=== PATIENT | female | born 1960 | race Caucasian/White ===

== ENCOUNTER 2016-09-25 12:23 | Observation (INO) | payer OTHER ==
[~2016-09-25] VITALS: Ht 160 cm; Wt 81.0 kg
[~2016-09-25 12:23] MED LIST: LIDO5DIS35 TOPICAL
[2016-09-25 12:30] VITALS: BP 112/52; PULSE 60; RESP 16; TEMP 98.8; O2SAT 96
[2016-09-25] MEDS ORDERED: SODIUM CHLORIDE 0.9% FLUSH 5 ML FLUSH IVF PRN ×2 (12:45→15:15)
[2016-09-25] MEDS ORDERED: ASPIRIN 81 MG CHEW TAB PO ONE (12:45)
[2016-09-25] MEDS ORDERED: NITROGLYCERIN 2% OINT 1 GM PACKET TOP ONE (12:45)
--- NOTE | 2016-09-25 12:45 | PD ---
HPI Chief Complaint: Cardiac Complaint Time Seen by Provider: 12:39 Travel History International Travel<30 days: No Contact w/Intl Traveler<30days: No Traveled to known affect area: No History of Present Illness HPI 56-year-old female brought in by ambulance with history of sudden onset central chest pain while exercising at the local gym on a step climber. Patient states it came on suddenly, it has improved somewhat with rest, and 162 mg of aspirin by mouth. Patient states at worst it was an 8/10, and worse with deep breath. Currently her pain is 2/10 at rest, and is in the mid central chest radiating through to the back. Patient states she did have some left arm discomfort when it first started. She states that is gone now. She has no previous history of cardiac disease, but has had an episode of syncope in the past with stress test performed several years ago. Patient has no known history of hypercholesterolemia. Patient is a nonsmoker. Patient is disabled from her back, but is active. Patient was seen originally at [facility], and sent here for further evaluation and workup. She states she is allergic to Cleocin and iodine. [facility] Past Medical History Diminished Hearing: No Kidney Stones: Yes Musculoskeletal: Yes (back pain) ?: Not Menopausal: Yes Social History Alcohol Use: Yes (ocassional) Tobacco Use: No Substance Use: No Allergies-Medications (Allergen,Severity, Reaction): Coded Allergies: Cleocin (Verified Adverse Reaction, Intermediate, Rash, 07/27/16) RASH Iodine (Verified Adverse Reaction, Intermediate, Rash, 07/27/16) HIVES Reported Meds & Prescriptions Reported Meds & Active Scripts Active No Active Prescriptions or Reported Medications Review of Systems Except as stated in HPI: all other systems reviewed are Neg General / Constitutional: No: Fever Eyes: No: Visual changes HENT: No: Headaches Cardiovascular: Positive: Chest Pain or Discomfort (see history of present illness.), No: Diaphoresis, Syncope, Dyspnea on exertion, Varicosities, Edema Respiratory: No: Shortness of Breath Gastrointestinal: No: Nausea, Vomiting, Diarrhea, Abdominal Pain Genitourinary: No: Dysuria Musculoskeletal: No: Pain Skin: No Rash Neurologic: No: Weakness Psychiatric: No: Depression Endocrine: No: Polydipsia Hematologic/Lymphatic: No: Easy Bruising Physical Exam Narrative GENERAL: Patient appears in no acute distress. SKIN: Warm and dry. Normal color. Normal turgor. No diaphoresis. HEAD: Atraumatic. Normocephalic. EYES: Pupils equal and round. No scleral icterus. No injection or drainage. ENT: No nasal bleeding or discharge. Mucous membranes pink and moist. Pharynx is normal. NECK: Trachea midline. No JVD. Neck is supple nontender. CARDIOVASCULAR: Regular rate and rhythm. No murmurs gallops or rubs appreciated. RESPIRATORY: No accessory muscle use. Clear to auscultation. Breath sounds equal bilaterally. GASTROINTESTINAL: Abdomen soft, non-tender, nondistended. Hepatic and splenic margins not palpable. MUSCULOSKELETAL: Extremities without clubbing, cyanosis, or edema. No obvious deformities. NEUROLOGICAL: Awake and alert. No obvious cranial nerve deficits. Motor grossly within normal limits. Five out of 5 muscle strength in the arms and legs. Normal speech. PSYCHIATRIC: Appropriate mood and affect; insight and judgment normal. Data Data Last Documented VS Vital Signs Date Time Temp Pulse Resp B/P Pulse Ox O2 Delivery O2 Flow Rate FiO2 09/25/16 14:00 67 14 116/53 99 Room Air 09/25/16 12:51 2 09/25/16 12:30 98.8 Orders Ckmb (Isoenzyme) Profile (09/25/16 12:36) Complete Blood Count With Diff (09/25/16 12:36) Comprehensive Metabolic Panel (09/25/16 12:36) D-Dimer (09/25/16 12:36) Magnesium (Mg) (09/25/16 12:36) Prothrombin Time / Inr (Pt) (09/25/16 12:36) Act Partial Throm Time (Ptt) (09/25/16 12:36) Troponin I (09/25/16 12:36) Chest, Single Ap (09/25/16 12:36) Ecg Monitoring (09/25/16 12:36) Bilateral Bp Monitoring (09/25/16 12:36) Iv Access Insert/Monitor (09/25/16 12:36) Oximetry (09/25/16 12:36) Oxygen Administration (09/25/16 12:36) Aspirin Chew (Aspirin Chew) (09/25/16 12:45) Nitroglycerin 2% Oint (Nitroglycerin 2% (09/25/16 12:45) Sodium Chloride 0.9% Flush (Ns Flush) (09/25/16 12:45) Labs Laboratory Tests Test 09/25/16 12:47 White Blood Count 7.0 TH/MM3 Red Blood Count 3.85 MIL/MM3 Hemoglobin 12.2 GM/DL Hematocrit 34.4 % Mean Corpuscular Volume 89.3 FL Mean Corpuscular Hemoglobin 31.6 PG Mean Corpuscular Hemoglobin 35.4 % Concent Red Cell Distribution Width 13.1 % Platelet Count 226 TH/MM3 Mean Platelet Volume 8.3 FL Neutrophils (%) (Auto) 58.9 % Lymphocytes (%) (Auto) 31.2 % Monocytes (%) (Auto) 6.9 % Eosinophils (%) (Auto) 2.4 % Basophils (%) (Auto) 0.6 % Neutrophils # (Auto) 4.1 TH/MM3 Lymphocytes # (Auto) 2.2 TH/MM3 Monocytes # (Auto) 0.5 TH/MM3 Eosinophils # (Auto) 0.2 TH/MM3 Basophils # (Auto) 0.0 TH/MM3 CBC Comment DIFF FINAL Differential Comment Prothrombin Time 10.8 SEC Prothromb Time International 1.0 RATIO Ratio Activated Partial 26.0 SEC Thromboplast Time D-Dimer Quantitative (PE/DVT) 0.38 MG/L FEU Sodium Level 140 MEQ/L Potassium Level 3.9 MEQ/L Chloride Level 106 MEQ/L Carbon Dioxide Level 29.7 MEQ/L Anion Gap 4 MEQ/L Blood Urea Nitrogen 10 MG/DL Creatinine 0.82 MG/DL Estimat Glomerular Filtration 73 ML/MIN Rate Random Glucose 87 MG/DL Calcium Level 8.7 MG/DL Magnesium Level 1.9 MG/DL Total Bilirubin 0.4 MG/DL Aspartate Amino Transf 27 U/L (AST/SGOT) Alanine Aminotransferase 69 U/L (ALT/SGPT) Alkaline Phosphatase 64 U/L Total Creatine Kinase 78 U/L Troponin I LESS THAN 0.02 NG/ML Total Protein 7.2 GM/DL Albumin 3.8 GM/DL [facility] Medical Decision Making Medical Screen Exam Complete: Yes Emergency Medical Condition: Yes Differential Diagnosis Coronary syndrome. Coronary ischemia. Angina. OH. Narrative Course Patient appears medically stable at time of exam. EKG shows nonspecific ST changes with question of ST depression in the ventral leads. This is reviewed with Dr. Mandel. Cardiac labs are ordered per protocol including a d-dimer. Patient is given a second dose of aspirin 162 mg by mouth. 1 inch of nitroglycerin paste is placed. Chest x-ray is ordered. Chest x-ray is unremarkable per radiologist. Labs show negative troponin. No other acute findings. Patient discussed and seen with Dr. Mandel. He feels the patient should remain for chest pain center admission and rule out. Diagnosis Primary Impression: Chest pain in adult Admitting Information Admitting Physician Requests: Observation Scripts No Active Prescriptions or Reported Meds Condition: Stable Yaw Guzman Sep 25, 2016 12:45
[2016-09-25 13:01] LABS: AUTOMATED NEUTROPHIL # 4.1 TH/MM3 (1.8-7.7); BASOPHIL % 0.6 % (0.0-2.0); EOSINOPHIL # 0.2 TH/MM3 (0-0.4); EOSINOPHIL % 2.4 % (0.0-4.0); HEMATOCRIT 34.4 % (35.0-46.0); HEMO FLAGS DIFF FINAL; LYMPH % 31.2 % (9.0-44.0); LYMPHOCYTE # 2.2 TH/MM3 (1.0-4.8); MEAN CELL VOLUME 89.3 FL (80.0-100.0); MEAN CORPUSCULAR HEMOGLOBIN 31.6 PG (27.0-34.0); MEAN CORPUSCULAR HGB CONC 35.4 % (32.0-36.0); MONO % 6.9 % (0.0-8.0); NEUT % 58.9 % (16.0-70.0); PLATELET COUNT 226 TH/MM3 (150-450); RED BLOOD COUNT 3.85 MIL/MM3 (4.00-5.30); RED CELL DISTRIBUTION WIDTH 13.1 % (11.6-17.2)
[2016-09-25 13:12] LABS: PROTHROMBIN TIME - PATIENT 10.8 SEC (9.8-11.6)
[2016-09-25 13:24] LABS: ALT (GPT) 69 U/L (10-53); ANION GAP 4 MEQ/L (5-15); AST (GOT) 27 U/L (15-37); BICARBONATE 29.7 MEQ/L (21.0-32.0); BLOOD UREA NITROGEN 10 MG/DL (7-18); CHLORIDE 106 MEQ/L (98-107); GLOMERULAR FILTRATION RATE 73 ML/MIN (>89); MAGNESIUM 1.9 MG/DL (1.5-2.5); POTASSIUM 3.9 MEQ/L (3.5-5.1); SODIUM (NA) 140 MEQ/L (136-145)
--- NOTE | 2016-09-25 13:26 | RADRPT ---
EXAM DATE/TIME: 09/25/2016 12:49 [facility] COMPARISON: No previous studies available for comparison. INDICATIONS : Chest Pain. MEDICAL HISTORY : Renal calculi. SURGICAL HISTORY : Orthopedic. ENCOUNTER: Initial ACUITY: 1 day PAIN SCORE: 6/10 LOCATION: Bilateral chest FINDINGS: A single view of the chest demonstrates the lungs to be symmetrically aerated without evidence of mas s, infiltrate or effusion. The cardiomediastinal contours are unremarkable. Osseous structures are intact. CONCLUSION: No acute disease. Nathan Ponce MD FACR on September 25, 2016 at 13:24 Board Certified Radiologist. This report was verified electronically.
--- NOTE | 2016-09-25 13:29 | PD ---
Data Data Last Documented VS Vital Signs Date Time Temp Pulse Resp B/P Pulse Ox O2 Delivery O2 Flow Rate FiO2 09/25/16 12:51 97 2 09/25/16 12:30 98.8 60 16 Orders Ckmb (Isoenzyme) Profile (09/25/16 12:36) Complete Blood Count With Diff (09/25/16 12:36) Comprehensive Metabolic Panel (09/25/16 12:36) D-Dimer (09/25/16 12:36) Magnesium (Mg) (09/25/16 12:36) Prothrombin Time / Inr (Pt) (09/25/16 12:36) Act Partial Throm Time (Ptt) (09/25/16 12:36) Troponin I (09/25/16 12:36) Chest, Single Ap (09/25/16 12:36) Ecg Monitoring (09/25/16 12:36) Bilateral Bp Monitoring (09/25/16 12:36) Iv Access Insert/Monitor (09/25/16 12:36) Oximetry (09/25/16 12:36) Oxygen Administration (09/25/16 12:36) Aspirin Chew (Aspirin Chew) (09/25/16 12:45) Nitroglycerin 2% Oint (Nitroglycerin 2% (09/25/16 12:45) Sodium Chloride 0.9% Flush (Ns Flush) (09/25/16 12:45) Labs Laboratory Tests Test 09/25/16 12:47 White Blood Count 7.0 TH/MM3 Red Blood Count 3.85 MIL/MM3 Hemoglobin 12.2 GM/DL Hematocrit 34.4 % Mean Corpuscular Volume 89.3 FL Mean Corpuscular Hemoglobin 31.6 PG Mean Corpuscular Hemoglobin 35.4 % Concent Red Cell Distribution Width 13.1 % Platelet Count 226 TH/MM3 Mean Platelet Volume 8.3 FL Neutrophils (%) (Auto) 58.9 % Lymphocytes (%) (Auto) 31.2 % Monocytes (%) (Auto) 6.9 % Eosinophils (%) (Auto) 2.4 % Basophils (%) (Auto) 0.6 % Neutrophils # (Auto) 4.1 TH/MM3 Lymphocytes # (Auto) 2.2 TH/MM3 Monocytes # (Auto) 0.5 TH/MM3 Eosinophils # (Auto) 0.2 TH/MM3 Basophils # (Auto) 0.0 TH/MM3 CBC Comment DIFF FINAL Differential Comment Prothrombin Time 10.8 SEC Prothromb Time International 1.0 RATIO Ratio Activated Partial 26.0 SEC Thromboplast Time D-Dimer Quantitative (PE/DVT) 0.38 MG/L FEU Sodium Level 140 MEQ/L Potassium Level 3.9 MEQ/L Chloride Level 106 MEQ/L Carbon Dioxide Level 29.7 MEQ/L Anion Gap 4 MEQ/L Blood Urea Nitrogen 10 MG/DL Creatinine 0.82 MG/DL Estimat Glomerular Filtration 73 ML/MIN Rate Random Glucose 87 MG/DL Calcium Level 8.7 MG/DL Magnesium Level 1.9 MG/DL Aspartate Amino Transf 27 U/L (AST/SGOT) Alanine Aminotransferase 69 U/L (ALT/SGPT) Albumin 3.8 GM/DL MDM Supervised Visit with ELPIDIO: Yes Narrative Course The history, exam, and medical decision-making in the associated mid-level provider note were completed with my assistance. I reviewed and agree with the findings presented. I attest that I had a [id number] encounter with the patient on the same day, and personally performed and documented my assessment and findings in the medical record. *My assessment and Findings: 56 year-old woman, pressure-like chest discomfort while using a sterile climber. No prodromal symptoms leading up to this. She's been sick for the past several days and was just really getting back up to speed but no dyspnea on exertion or chest pain prior to today. Symptoms have almost completely resolved now. This happened at about 11 AM. Patient has a moderate risk heart score, 4 points, one for moderately suspicious history, abnormal EKG, age, and positive family history. Given this, we will recommend observation in the chest pain Center. Scripts No Active Prescriptions or Reported Meds Frank Mandel MD Sep 25, 2016 13:29
[2016-09-25 13:30] LABS: ALKALINE PHOSPHATASE 64 U/L (45-117); TOTAL BILIRUBIN ADULT 0.4 MG/DL (0.2-1.0)
[2016-09-25 13:42] LABS: CREATINE KINASE 78 U/L (26-192)
[2016-09-25 14:00] VITALS: BP 116/53; PULSE 67; PULSE 70; RESP 14; O2SAT 99
[2016-09-25] MEDS ORDERED: ACETAMINOPHEN/HYDROcodone 325 MG/7.5 MG TAB PO PRN (15:15)
[2016-09-25] MEDS ORDERED: ALPRAZolam 0.25 MG TAB PO PRN (15:15)
[2016-09-25] MEDS: PANTOPRAZOLE SOD 40 MG DELAYED RELEASE TAB PO SCH (15:15)
[2016-09-25] MEDS ORDERED: ACETAMINOPHEN 500 MG CPLT PO PRN (15:15)
[2016-09-25] MEDS ORDERED: ONDANSETRON HCL 4 MG/2 ML VIAL IV PRN (15:15)
[2016-09-25] MEDS ORDERED: MORPHINE SULFATE 4 MG/ML INJ IV PUSH PRN (15:15)
[2016-09-25 16:39] LABS: CREATINE KINASE 73 U/L (26-192)
[2016-09-25 17:15] VITALS: BP 110/60; PULSE 75; RESP 18; TEMP 98; O2SAT 95
[2016-09-25 19:58] LABS: CREATINE KINASE 72 U/L (26-192)
[2016-09-25 20:00] VITALS: O2SAT 97
[2016-09-25 20:29] VITALS: BP 112/64; PULSE 84; RESP 21; TEMP 98.9; O2SAT 99
--- NOTE | 2016-09-25 21:32 | EKG ---
Date Performed: 09/25/2016 Time Performed: 12:31:59 PTAGE: 56 years EKG: Sinus rhythm NONSPECIFIC T-WAVE ABNORMALITY BORDERLINE ECG NO PREVIOUS TRACING DOCTOR: Bipin Quiñonez Interpretating Date/Time 09/25/2016 21:31:38
--- NOTE | 2016-09-25 21:34 | EKG ---
Date Performed: 09/25/2016 Time Performed: 15:33:45 PTAGE: 56 years EKG: Sinus rhythm WITH SINUS ARRHYTHMIA WITH FIRST DEGREE AV BLOCK NONSPECIFIC T-WAVE ABNORMALITY ABNORMAL ECG PREVIOUS TRACING : 09/25/2016 12.31 DOCTOR: Bipin Quiñonez Interpretating Date/Time 09/25/2016 21:33:03
--- NOTE | 2016-09-25 21:46 | EKG ---
Date Performed: 09/25/2016 Time Performed: 18:24:41 PTAGE: 56 years EKG: Sinus rhythm WITH FIRST DEGREE AV BLOCK NONSPECIFIC ST & T-WAVE ABNORMALITY ABNORMAL ECG PREVIOUS TRACING : 09/25/2016 15.33 DOCTOR: Bipin Quiñonez Interpretating Date/Time 09/25/2016 21:45:11
[2016-09-25] MEDS: SODIUM CHLORIDE 0.9% FLUSH 5 ML FLUSH IVF SCH (22:52)
[2016-09-25 23:07] VITALS: PULSE 76
[2016-09-26 00:23] VITALS: BP 121/66; PULSE 67; RESP 17; TEMP 98; O2SAT 97
[2016-09-26 04:44] VITALS: BP 121/68; PULSE 88; RESP 18; TEMP 98.4; O2SAT 99
[2016-09-26 07:57] VITALS: BP 103/69; PULSE 76; RESP 18; TEMP 98.1; O2SAT 96
[2016-09-26] MEDS: SODIUM CHLORIDE 0.9% FLUSH 5 ML FLUSH IVF SCH (08:00)
[2016-09-26] MEDS: PANTOPRAZOLE SOD 40 MG DELAYED RELEASE TAB PO SCH (08:15)
[2016-09-26 08:36] VITALS: O2SAT 96
[2016-09-26] MEDS ORDERED: ASPIRIN 325 MG TAB PO SCH (09:00)
--- NOTE | 2016-09-26 10:56 | RADRPT ---
EXAM DATE/TIME: 09/26/2016 09:04 [facility] COMPARISON: No previous studies available for comparison. INDICATIONS : Substernal chest pain radiating to left arm and back while exercising. Angina DOSE: 25.4 mCi Tc99m Myoview at stress 8.5 mCi Tc99m Myoview at rest REST HEART RATE: 73 BPM TARGET HEART RATE: 141 BPM MAX HEART RATE: 152 BPM REST BLOOD PRESSURE: 118/80 mmHg MAX BLOOD PRESSURE: 182/80 mmHg EJECTION FRACTION: 59% MEDICAL HISTORY : None SURGICAL HISTORY : None. ENCOUNTER: Initial ACUITY: 1 day PAIN SCALE: 8/10 LOCATION: Substernal chest TECHNIQUE: The patient underwent upright treadmill exercise in the chest pain center. Continuous ECG tracing wa s monitored during stress. Gated SPECT imaging was performed after stress, and conventional SPECT im aging was performed at rest. The examination was performed on a SPECT/CT scanner, both attenuation-c orrected and non-corrected datasets were reviewed. FINDINGS: The best perfused myocardium in the anterior wall followed by the septum and inferior wall. There a re no fixed defects to suggest infarction. There is no redistribution to suggest stress-induced isch emia. Ejection fraction is 59%. CONCLUSION: Negative for stress-induced ischemia. RISK CATEGORY: Low (<1% Annual Mortality Rate) Nathan Ponce MD FACR on September 26, 2016 at 10:53 Board Certified Radiologist. This report was verified electronically.
--- NOTE | 2016-09-26 11:21 | HHI.DCPOC ---
Discharge Care Plan Diagnosis: (1) Chest pain, atypical Goals to Promote Your Health * To prevent worsening of your condition and complications * To maintain your health at the optimal level Directions to Meet Your Goals Take your medications as prescribed Follow your dietary instruction Follow activity as directed Keep your appointments as scheduled Take your immunizations and boosters as scheduled If your symptoms worsen call your PCP, if no PCP go to Urgent Care Center or Emergency Room Smoking is Dangerous to Your Health. Avoid second hand smoke Call the 24-hour hour crisis hotline for domestic abuse at Thom Soto Sep 26, 2016 11:21
--- NOTE | 2016-09-26 12:50 | TR ---
Date Performed: 09/26/2016 Time Performed: 09:48:36 DOCTOR: Bipin Quiñonez DRUG LIST: CLINICAL HISTORY: REASON FOR TEST: REASON FOR ENDING: OBSERVATION: CONCLUSION: NUC ETT. JODIE PROTOCOL. NO CP. MILD SOB. SYSTOLIC HYPERTENSIVE RESPONSE TO EXERCIS E. FAIR EXERCISE TOLERANCE. ECG TRACINGS AT PEAK EXERCISE ARE NEGATIVE FOR ISCHEMIC CHANGES. RECOVER Y WAS QUICK AND UNEVENTFUL WITH RESOLUTION OF SHORTNESS OF BREATH, SYSTOLIC BLOOD PRESSURE RETURNED T O NORMAL.Maximum FR=140 % Max HR Achieved=92.0% Maximum CE=441/80 Total Exercise Time=7:39 COMMENTS: CONCLUSION: ECG portion of nuclear exercise stress test was negative for ischemia. Nuc lear imaging and interpretation are pending.
--- NOTE | 2016-09-27 08:39 | MH ---
cc: BIPIN PEÑA DATE OF ADMISSION: 09/25/2016 CHIEF COMPLAINT: Chest pain. HISTORY OF PRESENT ILLNESS: This is a 56-year-old female who presented to the emergency department via [facility] from care with a complaint of chest discomfort. The patient states that she goes on a stair climber five times a week and has been doing so for a couple of months usually has no issues. This morning around eleven o'clock, almost immediately after getting on the stair stepper, she developed a squeezing across her chest. She continued to walk for about six minutes and it just continued to worsen. It got to about a 7/10 and is still there as a 7/10. She states that is it worsened with a sharp discomfort when she takes in a deep breath. She is mildly short of breath. No nausea or diaphoresis. She has never had anything like this before. She states she has had a stress test a couple of years ago. She believes it was after a syncopal episode and that it was okay. She is now followed by a hotel registration clerk at this time. She denies any recent illnesses. She has not been coughing. No fevers or chills. She does state she recently flew back from [place] September 15. She denies calf pain or swelling. She denies history of DVT or PE. PAST MEDICAL HISTORY: 1. She is disabled secondary to chronic back pain. 2. Bipolar disorder. 3. Denies hypertension, hyperlipidemia, diabetes and CAD. FAMILY HISTORY: She just recently found that she has a half-sister and her half-sister has stents. SOCIAL HISTORY: The patient was smoking 12 years ago and prior to that, she smoked about a quarter pack a day for thirty years. She has an occasional beer. She smokes marijuana daily. PAST SURGICAL HISTORY: Noncontributory. ALLERGIES: 1. CLEOCIN. 2. IODINE. MEDICATIONS: She occasionally will take a soma or a Dilaudid tablet for back issues but this is not regular. REVIEW OF SYSTEMS: GENERAL: Denies fevers or chills. Denies recent illnesses. HEAD, EYES, EARS, NOSE, THROAT: Denies headache, earache, sore throat, difficulty swallowing. CARDIOVASCULAR: Describes the discomfort as mentioned above. Denies diaphoresis. Denies sensation of heart beating rapidly or irregularly. No syncope. RESPIRATORY: She was a little short of breath. She had inspirational chest discomfort that worsened the symptoms she had been having. Denies coughing, wheezing or hemoptysis. GI: Denies nausea, vomiting, diarrhea, abdominal pain or blood in the stool. MUSCULOSKELETAL: She complains of chronic back pain. She also complains of chronic bilateral knee pain. Denies calf pain or swelling. NEUROVASCULAR: Denies headache or dizziness. ENDOCRINE: Denies polyuria or polydipsia. HEMATOLOGIC: Denies easy bruising. SKIN: Denies rash or itching. PHYSICAL EXAMINATION: VITAL SIGNS: The vital signs in the emergency department initially included a blood pressure of 12/52, heart rate 60, respirations 16, pulse oximetry 96% on room air and she is afebrile. The most recent vital signs include a blood pressure of 116/53, heart rate 67, respirations 14, pulse oximetry 98% on room air. GENERAL: The patient was seen in the examination room in no apparent stress. She is very pleasant. She speaks in clear and complete sentences. HEAD, EYES, EARS, NOSE, THROAT: Head is atraumatic and normocephalic. NECK: The neck is supple without lymphadenopathy and trachea is midline. No JVD or carotid bruits. CARDIOVASCULAR: Regular rate and rhythm without gallop or rub. Grade 2 systolic murmur left sternal border. RESPIRATORY: The lungs are clear to auscultation bilaterally. No wheezing, rales or rhonchi. No reproducible chest wall discomfort. No use of accessory muscles. GI: Abdomen is nontender and nondistended and bowel sounds are normal. No guarding or rebound. No obvious pulsatile mass or bruit. No CVA tenderness. Strong femoral pulses bilaterally. MUSCULOSKELETAL: The patient is moving upper and lower extremities freely. No joint tenderness or edema. No calf tenderness or edema. No Homans' sign. Strong pulses in upper and lower extremities. NEUROVASCULAR: The patient is alert and oriented. Cranial nerves II through XII are grossly intact. No focal deficits and speech is clear. SKIN: No rashes and turgor is normal. LABORATORY DATA: CBC is unremarkable. Coagulation studies are unremarkable including a D-dimer is normal at 0.38. Complete metabolic panel is essentially normal. ALT is mildly elevated 69. First set of cardiac enzymes is normal. IMAGING STUDIES: Single view chest x-ray read by the radiologist as nothing acute. EKGS: Initial EKG is sinus rhythm with nonspecific anterolateral S-T-T changes. ASSESSMENT AND PLAN: 1. Chest pain: The patient will continue to have cardiac enzymes and EKGs for ruling out purposes. She will be seen by Dr. Peña in the chest pain center. If she does rule out in the morning then she will likely proceed with a nuclear ETT. If her stress test were to be unremarkable, she would then be discharged home with instructions to follow up with her local physician. 2. Chronic back pain. Will offer analgesia as needed while in the chest pain center. The patient is stable at this time. She is agreeable with this plan. DICTATED BY ALEX MARTINEZ PA-C. Bipin Peña MD [facility] /3:20 PM /8:40 AM
== END 2016-09-26 13:27 | disposition home or self-care (01) ==
LOC: NEPC 12:23 → NEDA 14:35 → NEPHCDU 17:14
PROVIDERS: ADMIT Family Medicine; ATTEND Family Medicine
DX: R07.89 Other chest pain (principal); M54.9 Dorsalgia, unspecified; G89.29 Other chronic pain; F12.90 Cannabis use, unspecified, uncomplicated; F31.9 Bipolar disorder, unspecified; R94.31 Abnormal electrocardiogram [ECG] [EKG]; Z87.442 Personal history of urinary calculi; Z87.891 Personal history of nicotine dependence
CPT/HCPCS: 71010; 78452; 80053; 82550; 83735; 84443; 84484; 85025; 85379; 85610; 85730; 93005; 93017; 99285; A9502; G0378

== ENCOUNTER 2017-06-13 14:31 | Emergency (ER) | payer OTHER ==
[~2017-06-13] VITALS: Ht 160 cm; Wt 80.0 kg
[2017-06-13 14:36] VITALS: BP 141/74; PULSE 74; RESP 16; TEMP 98.7; O2SAT 98
--- NOTE | 2017-06-13 14:46 | PD ---
Physical Exam Date Seen by Provider: Jun 13, 2017 Time Seen by Provider: 14:45 Narrative 56 year old female here for evaluation of possible kidney stone. Flank pain for a few days. Pain is 7/10. No BM issues. Has not seen anybody for this. Multiple allergies to meds. Vitals are stable. Awaiting bed placement. Data Data Last Documented VS Vital Signs Date Time Temp Pulse Resp B/P (MAP) Pulse Ox O2 Delivery O2 Flow Rate FiO2 06/13/17 14:36 98.7 74 16 141/74 (96) 98 Room Air Orders Orders Complete Blood Count With Diff (06/13/17 14:41) Basic Metabolic Panel (Bmp) (06/13/17 14:41) Urinalysis - C+S If Indicated (06/13/17 14:41) Ct Abd/Pel W/O Iv Contrast (06/13/17 14:41) [facility] Medical Record Reviewed: Yes Supervised Visit with ELPIDIO: No Scripts No Active Prescriptions or Reported Meds Patrick Ace Jun 13, 2017 14:46
--- NOTE | 2017-06-13 16:00 | PD ---
HPI Chief Complaint: Flank/Kidney Pain Time Seen by Provider: 15:45 Travel History International Travel<30 days: No Contact w/Intl Traveler<30days: No Traveled to known affect area: No History of Present Illness HPI The patient was seen and examined in the presence of the nurse. This patient complains of left flank pain. He is been having intermittently for 2 weeks. She has history of multiple kidney stones. She is worried about having a kidney stone and specifically requests a CAT scan be done. She denies rasheed hematuria or dysuria or fever or injury. She has chronic back pain and takes Dilaudid and Soma from a pain management clinic in [place]. She says today's flank pain is different than her chronic low back pain. Severity is moderate. No alleviating factors. Exacerbating factors. PFSH Past Medical History Heart Rhythm Problems: No Cardiac Catheterization: No Cardiovascular Problems: Yes High Cholesterol: No Congestive Heart Failure: No Diabetes: No Diminished Hearing: No Kidney Stones: Yes Musculoskeletal: Yes (back pain) ?: Not Menopausal: Yes Past Surgical History Coronary Artery Bypass Graft: No Social History Alcohol Use: Yes Tobacco Use: No Substance Use: No Allergies-Medications (Allergen,Severity, Reaction): Coded Allergies: clindamycin (Unverified Adverse Reaction, Intermediate, Rash, 06/13/17) RASH iodine (Unverified Adverse Reaction, Intermediate, Rash, 06/13/17) HIVES potassium iodide (Unverified Adverse Reaction, Intermediate, Rash, 06/13/17 ) HIVES povidone-iodine (Unverified Adverse Reaction, Intermediate, Rash, 06/13/17) HIVES sodium iodide (Unverified Adverse Reaction, Intermediate, Rash, 06/13/17) HIVES sodium iodide (Unverified Adverse Reaction, Intermediate, Rash, 06/13/17) HIVES Reported Meds & Prescriptions Reported Meds & Active Scripts Active Zofran (Ondansetron HCl) 4 Mg Tab 4 Mg PO Q6HR PRN Review of Systems General / Constitutional: No: Fever Eyes: No: Visual changes HENT: No: Headaches Cardiovascular: No: Chest Pain or Discomfort Respiratory: No: Shortness of Breath Gastrointestinal: No: Abdominal Pain Genitourinary: Positive: Flank Pain, No: Dysuria Musculoskeletal: Positive: Pain Skin: No Rash Neurologic: No: Weakness Psychiatric: No: Depression Endocrine: No: Polydipsia Hematologic/Lymphatic: No: Easy Bruising Physical Exam Narrative GENERAL: Well-nourished, well-developed patient in no apparent distress. SKIN: Focused skin assessment reveals no rash and nodules. Skin is Warm and dry. HEAD: Atraumatic. Normocephalic. EYES: Pupils equal and round. No scleral icterus. No injection or drainage. ENT: No nasal bleeding or discharge. Mucous membranes pink and moist. NECK: Trachea midline. No JVD. CARDIOVASCULAR: Regular rate and rhythm. No murmur appreciated. RESPIRATORY: No accessory muscle use. Clear to auscultation. Breath sounds equal bilaterally. GASTROINTESTINAL: Abdomen soft, non-tender, nondistended. Hepatic and splenic margins not palpable. MUSCULOSKELETAL: No obvious deformities. No clubbing. No cyanosis. No edema. No midline tenderness. No flank tenderness NEUROLOGICAL: Awake and alert. No obvious cranial nerve deficits. Motor grossly within normal limits. Normal speech. PSYCHIATRIC: Appropriate mood and affect; insight and judgment normal. Data Data Last Documented VS Vital Signs Date Time Temp Pulse Resp B/P (MAP) Pulse Ox O2 Delivery O2 Flow Rate FiO2 06/13/17 14:36 98.7 74 16 141/74 (96) 98 Room Air Orders Orders Urinalysis - C+S If Indicated (06/13/17 14:41) Ct Abd/Pel W/O Iv Contrast (06/13/17 ) Ketorolac Inj (Toradol Inj) (06/13/17 17:00) Ondansetron Odt (Zofran Odt) (06/13/17 17:00) Labs Laboratory Tests Test 06/13/17 15:58 Urine Color YELLOW Urine Turbidity CLEAR Urine pH 6.5 Urine Specific [place] 1.020 Urine Protein NEG mg/dL Urine Glucose (UA) NEG mg/dL Urine Ketones NEG mg/dL Urine Occult Blood SMALL Urine Nitrite NEG Urine Bilirubin NEG Urine Urobilinogen LESS THAN 2.0 MG/DL Urine Leukocyte Esterase SMALL Urine RBC 10 /hpf Urine WBC 8 /hpf Urine Squamous Epithelial Cells <1 /hpf Urine Bacteria RARE /hpf Urine Mucus FEW /lpf Microscopic Urinalysis Comment CULT NOT INDICATED MDM Medical Decision Making Medical Screen Exam Complete: Yes Emergency Medical Condition: Yes Medical Record Reviewed: Yes Differential Diagnosis Kidney stone, pyelonephritis, sciatica Narrative Course I have reviewed the patient's electronic medical record. Patient was seen here last year for flank pain and had negative CT Urinalysis shows no significant infection but will be cultured CT of abdomen and pelvis shows no inflammatory changes or kidney stone. She should follow-up with primary care. I gave her Toradol injection and Zofran dose here as well as prescription for Zofran. Diagnosis Primary Impression: Left flank pain Additional Instructions: The patient was advised to follow up with their physician and return if they worsen. Med/Other Pt SpecificInfo: Prescription(s) given Scripts Ondansetron (Zofran) 4 Mg Tab 4 MG PO Q6HR Y for NAUSEA OR VOMITING, #15 TAB 0 Refills Prov: Bassem Whittaker MD 06/13/17 Disposition: 01 DISCHARGE HOME Condition: Stable Bassem Whittaker MD Jun 13, 2017 16:00
[2017-06-13 16:27] LABS: BACTERIA, URINE RARE /hpf; BLOOD, URINE SMALL (NEG); GLUCOSE,URINE NEG (NEG); KETONE, URINE NEG (NEG); MUCUS URINE FEW /lpf (OCC); NITRITE,URINE NEG (NEG); PH, URINE 6.5 (5.0-8.5); SQUAMOUS EPITHELIAL CELL URINE <1 /hpf (0-5); URINE COLOR YELLOW (YELLW/STRAW)
[2017-06-13 16:28] LABS: COMMENT (UR) CULT NOT INDICATED; CULTURE IF INDICATED CULT NOT INDICATED
--- NOTE | 2017-06-13 16:39 | RADRPT ---
EXAM DATE/TIME: 06/13/2017 16:18 [facility] COMPARISON: CT ABDOMEN & PELVIS W/O CONTRAST, July 27, 2016, 17:21. INDICATIONS : Left flank pain. ORAL CONTRAST: No oral contrast ingested. RADIATION DOSE: 15.96 CTDIvol (mGy) MEDICAL HISTORY : Renal calculi. SURGICAL HISTORY : None. ENCOUNTER: Initial ACUITY: 1 day PAIN SCALE: 5/10 LOCATION: Left flank TECHNIQUE: Volumetric scanning of the abdomen and pelvis was performed. Using automated exposure control and ad justment of the mA and/or kV according to patient size, radiation dose was kept as low as reasonably achievable to obtain optimal diagnostic quality images. DICOM format image data is available electro nically for review and comparison. FINDINGS: Lung bases are clear. Osseous structures demonstrate degenerative changes of the spine. Unenhanced ap pearance of the liver, visualized portions of the spleen, pancreas, adrenal glands are unremarkable. Bilateral kidneys are unremarkable. Scattered atherosclerotic calcifications are noted. Urinary bladd er is normal. The uterus and ovaries are unremarkable. There is diverticulosis of the sigmoid colon w ithout evidence of diverticulitis. Appendix normal. Small bowel unremarkable. No adenopathy or aneury sm. CONCLUSION: 1. Atherosclerosis. 2. Diverticulosis. 3. No inflammatory changes in the abdomen or pelvis. Iftikhar Guzman MD on June 13, 2017 at 16:36 Board Certified Radiologist. This report was verified electronically.
[2017-06-13] MEDS ORDERED: ZOFR4TAB PO (16:59)
[2017-06-13] MEDS ORDERED: KETOROLAC TROMETHAMINE 60 MG/2 ML (IM) VIAL IM ONE (17:00)
[2017-06-13] MEDS ORDERED: ONDANSETRON ODT 4 MG TAB PO ONE (17:00)
[2017-06-13 17:31] VITALS: BP 138/72
== END 2017-06-13 17:33 | disposition home or self-care (01) ==
LOC: NEPD 14:31
DX: R10.32 Left lower quadrant pain (principal)
CPT/HCPCS: 74176; 81001; 96372; 99285; J1885